=== PATIENT | female | born 1975 ===

== ENCOUNTER 2016-09-20 14:30 | Inpatient (IN) | payer OTHER ==
[~2016-09-20] VITALS: Ht 160 cm; Wt 85.7 kg
[2016-10-24] MEDS ORDERED: HYZAAR 100-12.1 EACH ORAL (11:01)
[2016-10-25] VITALS (12 sets, daily range): BP systolic 110–148; BP diastolic 59–95
[2016-10-25] MEDS ORDERED: IBUPROFEN800 M1 PO (06:04)
--- NOTE | 2016-10-25 07:13 | Pre-Procedure Note/Attestation ---
Pre-Procedure Note/Attestation Complete Prior to Procedure Procedure Narrative: acdf c34, c45, c56 Indications for Procedure Pre-Operative Diagnosis: cervical myeloradiculopathy Attestation I attest that I discussed the nature of the procedure; its benefits; risks and complications; and alternatives (and the risks and benefits of such alternatives ), prior to the procedure, with the patient (or the patient's legal sales representative). I attest that, if there was a reasonable possibility of needing a blood transfusion, the patient (or the patient's legal sales representative) was given the [facility] standardized written summary, pursuant to the Smooth [place] Blood Safety Act ([place] Health and Safety Code # 1645, as amended). I attest that I re-evaluated the patient just prior to the surgery and that there has been no change in the patient's H&P, except as documented below: SHAE DUBOSE October 25, 2016 07:13
[2016-10-25] MEDS ORDERED: Bacitracin 50000 Units Vial ONE (07:15)
[2016-10-25] MEDS ORDERED: Bupivacaine w/Epi 0.5% 30ml Vial INJ ONE (07:15)
[2016-10-25] MEDS ORDERED: Thrombin 5000 units TOPIC ONE (07:15)
[2016-10-25] MEDS ORDERED: Vancomycin 1gm inj IVPB ONE (07:15)
[2016-10-25] MEDS ORDERED: Naloxone 0.4mg/ml Inj IVP PRN (07:15)
[2016-10-25] MEDS ORDERED: HYDROmorphone 1mg/ml Carpuject IVP PRN (07:15)
[2016-10-25] MEDS ORDERED: Norco 5mg/325mg tab ORAL PRN (07:15)
[2016-10-25] MEDS ORDERED: Norco 7.5mg/325mg tab ORAL PRN ×2 (07:15)
[2016-10-25] MEDS ORDERED: Thrombin 5000 units spray kit TOPIC ONE (07:18)
[2016-10-25 07:46] LABS: APPEARANCE,URINE CLEAR; KETONES,URINE NEGATIVE (NEGATIVE); LEUKOCYTE ESTERASE ,URINE NEGATIVE (NEGATIVE); NITRITE,URINE NEGATIVE (NEGATIVE); PH,URINE 6 (4.5-8.0); PROTEIN,URINE NEGATIVE (NEGATIVE); UROBILINOGEN,URINE NORMAL MG/DL (0.0-1.0)
[2016-10-25 08:00] LABS: RBC,URINE 0-2 /HPF (0 - 2); WBC,URINE 0-2 /HPF (0 - 2)
[2016-10-25] MEDS ORDERED: Dexamethasone 4mg/ml vial ONE (08:00)
[2016-10-25] MEDS ORDERED: NS Irrig 1000ml ONE (08:00)
[2016-10-25] MEDS ORDERED: Sterile Water Irrig 1000ml IRRIG ONE (08:00)
[2016-10-25] MEDS ORDERED: Neostigmine 1mg/ml 10ml Inj ONE (08:00)
[2016-10-25] MEDS ORDERED: Zemuron 50mg/5ml Inj IV ONE (08:00)
[2016-10-25] MEDS ORDERED: Propofol 10mg/ml 100ml btl IV ONE (08:00)
[2016-10-25] MEDS ORDERED: Succinylcholine 20mg/ml 10ml vial ONE (08:00)
[2016-10-25] MEDS ORDERED: LR 1000ml ONE (08:00)
[2016-10-25] MEDS ORDERED: Midazolam 2mg/2ml Inj ONE (08:00)
[2016-10-25] MEDS ORDERED: Ketorolac 30mg Inj ONE (08:00)
[2016-10-25] MEDS ORDERED: fentaNYL 250mcg/5ml ONE (08:00)
[2016-10-25] MEDS ORDERED: Glycopyrrolate 0.2mg/ml 1ml Vial ONE (08:00)
[2016-10-25 08:01] LABS: BACTERIA,URINE OCCASIONAL /HPF; SQUAMOUS EPITHELIAL CELL,UR FEW /LPF (NONE/OCC)
[2016-10-25] MEDS ORDERED: Gelfoam Absorbable 1gm powder pkt TOPIC ONE (08:07)
[2016-10-25] MEDS ORDERED: Docusate 100mg tablet ORAL SCH (09:00)
--- NOTE | 2016-10-25 09:27 | Anethesia Preoperative Eval ---
Anesthesia Pre-op PMH/ROS General Date of Evaluation: October 25, 2016 Time of Evaluation: 07:10 Anesthesiologist: Shannon ASA Score: ASA 2 Mallampati Score Class I : Soft palate, uvula, fauces, pillars visible Class II: Soft palate, uvula, fauces visible Class III: Soft palate, base of uvula visible Class IV: Only hard plate visible Mallampati Classification: Class III Surgeon: Sonali Diagnosis: Cervical radiculopathy Surgical Procedure: ACDF C3 to C6 Anesthesia History: PONV Family History: no anesthesia problems Allergies: Coded Allergies: No Known Allergies (Unverified , 10/24/16) Medications: see eMAR Past Medical History Cardiovascular: Reports: HTN, Denies: CAD, [place], arrhythmia, other, valve dz Pulmonary: Denies: COPD, JAYDON, asthma, other Gastrointestinal/Genitourinary: Reports: GERD, Denies: CRI, ESRD, other Neurologic/Psychiatric: Reports: other - chronic pain, Denies: CVA, TIA, dementia, depression/anxiety Endocrine: Denies: DM, hypothyroidism, other, steroids HEENT: Denies: [place] (L), [place] (R), cataract (L), cataract (R), glaucoma, other Hematology/Immune: Denies: DVT, anemia, bleeding disorder, other Musculoskeletal/Integumentary: Denies: DDD, DJD, OA, RA, edema, other Other: obesity PMH Narrative: as above PSxH Narrative: C section Anesthesia Pre-op Phys. Exam Physician Exam Last Vital Signs Date Time Temp Pulse Resp B/P Pulse Ox O2 Delivery O2 Flow Rate FiO2 10/25/16 06:19 98.8 86 18 148/95 97 Room Air Constitutional: NAD Neurologic: CN 2-12 intact Cardiovascular: RRR, no M/R/G Respiratory: CTA Gastrointestinal: other - obesity Airway Exam Mallampati Score: Class III MO: full Neck: short ROM: limited Teeth: intact Dentures: no lower, no upper Anesthesia Pre-op A/P Labs see chart. Urinalysis is missing in preoperative lab work. To rule out possible UTI STAT UA was ordered will not start the case without getting a normal result. Urine Test Test 10/25/16 07:40 Urine HCG, Qualitative Negative Studies Pre-op Studies: EKG - NSR Risk Assessment & Plan Assessment: ASA 2 Plan: GA with ETT PONV prevention Neuromonitoring Status Change Before Surgery: No Pre-Antibiotics Drug: Ancef 2gr. Given Within 1 Hr of Incision: Yes Time Given: 08:38 DARCIE MAGALLANES M.D. October 25, 2016 09:27
[2016-10-25] MEDS ORDERED: LR 1000ml 1,000 ML IVLG SCH (09:41)
[2016-10-25] MEDS ORDERED: Midazolam 2mg/2ml Inj IVP PRN (09:45)
[2016-10-25] MEDS ORDERED: Meperidine 25mg/0.5ml Inj IV PRN (09:45)
[2016-10-25] MEDS ORDERED: Metoclopramide 10mg/2ml Inj IVP PRN (09:45)
[2016-10-25] MEDS ORDERED: DiphenhydrAMINE 50mg/ml Inj IVP PRN (09:45)
[2016-10-25] MEDS ORDERED: Ketorolac 30mg Inj IV PRN (09:45)
[2016-10-25] MEDS ORDERED: Hydromorphone 0.5mg/0.5ml inj IVP PRN (09:45)
--- NOTE | 2016-10-25 11:22 | Brief Operative Note ---
Immediate Post Operative Note Operative Note Pre-op Diagnosis: cervical myeloradiculopathy Procedure: acdf c3-6 Post-op Diagnosis: same as above Post-op Diagnosis: same as pre-op Findings: consistent w/pre-op dx studies Surgeon: emanuel Investment Accounting Clerk: radha Anesthesiologist: jerry Anesthesia: general Specimen: none Complications: none Condition: stable Fluids: 1200cc Estimated Blood Loss: volume - less than 50 cc Drains: none Implant(s) used?: Yes SHAE DUBOSE October 25, 2016 11:22
[2016-10-25] MEDS ORDERED: Bacitracin Oint 15gm Tube TOPIC ONE (11:35)
--- NOTE | 2016-10-25 12:03 | Immediate Post-Op Evaluation ---
Immediate Post-Op Evalulation Immediate Post-Op Evalulation Procedure: ACDF C3-C4-C5-C6 Date of Evaluation: October 25, 2016 Time of Evaluation: 12:01 IV Fluids: 1200 Blood Products: none Estimated Blood Loss: <50 Urinary Output: 150 Blood Pressure Systolic: 123 Blood Pressure Diastolic: 55 Pulse Rate: 93 Respiratory Rate: 22 O2 Sat by Pulse Oximetry: 99 Temperature (Fahrenheit): 98.6 Pain Score (1-10): 2 Nausea: No Vomiting: No Complications none Patient Status: reacts, patent, extubated, none Hydration Status: adequate DARCIE MAGALLANES M.D. October 25, 2016 12:03
[2016-10-25] MEDS: HYDROmorphone 1mg/ml Carpuject SUBQ PRN ×3 (14:23→21:50)
[2016-10-25] MEDS: D5 1/2NS 1,000 ML IV SCH (14:23)
[2016-10-25] MEDS: ceFAZolin sod 1 GM in D5W 55 ML IV SCH (16:11)
[2016-10-25] MEDS: Docusate 100mg cap ORAL SCH (18:00)
--- NOTE | 2016-10-25 20:19 | Operative Note - Dictated ---
DATE OF OPERATION: 10/25/2016 PREOPERATIVE DIAGNOSIS: C3-C4, C4-C5, and C5-C6 disc protrusions with stenosis and right upper extremity myeloradiculopathy with positive upper motor neuron signs. POSTOPERATIVE DIAGNOSIS: C3-C4, C4-C5, and C5-C6 disc protrusions with stenosis and right upper extremity myeloradiculopathy with positive upper motor neuron signs. PROCEDURE PERFORMED: 1. Interbody arthrodesis at C3-C4, C4-C5, and C5-C6. 2. Anterior cervical instrumentation C3 through C6. 3. Anterior cervical diskectomy and decompression of the spinal cord at C3-C4, C4-C5, and C5-C6. 4. Implantation of PEEK interbody device with local autologous bone and [place] allograft at C3-C4, C4-C5, and C5-C6. 5. Intraoperative use of fluoroscopy. 6. Intraoperative use of microscope. 7. SSEP/EMG/MEP monitoring. SURGEON: Luis Lyon M.D. SPECIAL EDUCATION PROFESSIONAL: Rubén Ortiz M.D. ANESTHESIOLOGIST: Mayur Ortega M.D. SPECIAL EDUCATION PROFESSIONAL: General endotracheal anesthesia. EBL: Less than 50 mL. IV ANTIBIOTICS: 2 g of Ancef. COMPLICATIONS: None. BACKGROUND: She is a pleasant female, who failed nonoperative treatments and options for above treatment was given. Risks, alternatives, and benefits were discussed with the patient at length. The patient wished to proceed. Risks include, but are not limited to, anesthesia complications including , medical complications including liver, kidney, and cardiopulmonary deficits, bleeding, infection, dysphonia, dysphagia, hematoma of the neck, nerve root injury, paralysis, spinal cord injury, CSF leak, dural tear, fracture of the hardware, loosening of the hardware, need for revision, decompression, and fusion, swallowing difficulties, esophageal injury, tracheal injury, recurrent laryngeal nerve injury as well as other complications including compartment syndrome. The patient understood and wished to proceed. All the patient's questions were answered. Written and verbal consent was given. No guarantees were given. OPERATIVE FINDINGS: Herniated nucleus pulposus at C3-C4, C4-C5, and C5-C6 with spinal stenosis and effacement of the CSF space with moderate to severe stenosis at C5-C6 and moderate stenosis at C4-C5 and moderate stenosis at C3-C4 with spinal cord compression. OPERATION: The patient was brought into the operating room supine on a stretcher. Appropriate IV lines were placed by the anesthesiologist. 2 g of Ancef was administered. The patient was induced and intubated without complication. The patient was positioned on the operating room table. The neck was placed in neutral alignment. The arms were tucked by the side. All bony prominences were well padded as well as four extremities. SSEP/EMG/MEP monitoring leads were placed and baseline recordings were done by the Neurophysiology loss control technician. Preoperative fluoroscopy revealed the planned incision to be overlying C3-C4, C4-C5, and C5-C6. Fluoroscopy showed the neck to be in adequate alignment. The neck was prepped and draped in the usual sterile fashion with alcohol, chlorhexidine scrub, and ChloraPrep. A vertical incision was placed over the anterior right side of the neck over the medial border of the sternocleidomastoid muscle. The hemostasis was achieved with bipolar cautery. The platysma was incised inline with the skin incision. Blunt dissection was carried out in the interval between the strap muscles and the sternocleidomastoid. Superficial cervical fascia was dissected caudally as well as cephalad. Carotid pulse was palpated and found to be well lateral to the field of dissection. Deep cervical fascia was encountered. Once the deep cervical fascia was found, blunt dissection was carried out with Kittner and finger dissection to the prevertebral space. The longus coli was found on both sides of the spine. The longus coli was carefully subperiosteally dissected off of the spine. At this point, retractors were set in place. Spinal needle was placed at the C5-C6 and C4-C5 levels and the C5-C6, C4-C5, and C3-C4 levels were positively identified with lateral fluoroscopy. Retractors were set into place. The intraoperatively sterilely draped microscope was used throughout the case from the beginning of the incision to the end. Attention first was diverted to the C5-C6 disk space. With a number 15 scalpel, incision was made over the anterior annulus and with pituitary rongeurs, straight and curved curette, #2 and #3 Kerrison punches as well as a high speed drill, a radical diskectomy was done. Endplate cartilage was removed. Endplate bone was preserved. The dissection was carried out at the posterior longitudinal ligament with a high-speed drill and with micro set #1 and #2 curettes and Kerrison #1 and #2 punches, the PLL was removed. All disc herniation was removed. An anterior foraminotomy for the exiting C6 nerve roots was done bilaterally and complete decompression of the central canal, the lateral recess, and the foramina entailed including the exiting nerve roots and the spinal cord at C5-C6. The wound was copiously irrigated with triple antibiotic solution and Valsalva was done and there was no CSF leak. Now, the retractors were moved to the C4-C5 level and with same instruments including a scalpel, pituitary rongeurs, #1, #2, and #3 Kerrison punches, high-speed drill, micro set curettes, a radical diskectomy was done. Endplate cartilage was removed. Endplate bone was well preserved. The dissection was carried out to the posterior aspect of the vertebral bodies and the posterior longitudinal ligament. With micro set curettes, the posterior longitudinal ligament was removed and all disc herniation was removed and a complete decompression of the spinal cord, spinal canal, lateral recess, central canal, and foraminotomy entailed including the exiting C5 nerve roots. Valsalva was done. There is no CSF leak. At this point, a complete decompression entailed and the wound was copiously irrigated with triple antibiotic solution. The Surgicel and thrombin was used to achieve hemostasis. There was minimal to no bleeding throughout the case and the final EBL was less than 50 mL. The wound was copiously irrigated at the C4-C5 level and now the retractors were removed to the C3-C4 level and attention was diverted to doing the diskectomy there. The same instruments were used including a #15 scalpel, straight and curved curettes, #2, #3, #1 Kerrison punches, and high-speed drill. Endplate cartilage was removed. Endplate bone was well preserved and the dissection was carried out to the posterior longitudinal ligament. The posterior longitudinal ligament was removed and #1 and #2 Kerrison punches were used to achieve a full decompression at the central canal, the spinal cord, the lateral recess, and foramina as well as the exiting nerve roots. There is compression on the spinal cord at C3-C4 and also at C4-C5 and C5-C6. Once complete decompression was done, Valsalva 40 mmHg was done. There was no CSF leak. Attention now was diverted to placement of interbody devices. From the spinal element system, the trials were used and #6 height spinal elements PEEK cages were chosen for each level including C5-C6, C4-C5, and C3-C4. The PEEK interbody device was packed with [place] as well as local autografts harvested from the vertebral bodies and the PEEK interbody devices were carefully tamped into place at C5-C6, C4-C5, and C3-C4. Once this was accomplished, attention was diverted towards AP and lateral fluoroscopy. The PEEK interbody devices were found to be in excellent position. An appropriately sized [place]ton plate was chosen and placed on the anterior surface of the vertebral bodies. AP and lateral fluoroscopy was done to pick the perfect size of plate and the plate was fixed to the anterior surface of C3, C4, C5, C6 vertebral bodies with 14 mm screws. Each screw had excellent purchase and sat below the locking mechanism of the Colton plate appropriately. Final AP and lateral fluoroscopy revealed all instrumentation to be in excellent position. Alignment of the spine was in acceptable position and now attention was diverted to closure. The wound was copiously irrigated with triple antibiotic solution. Hemostasis was achieved. There was no bleeding and therefore, a drain was chosen not to be used. The AP and lateral fluoroscopy revealed all instrumentation to be in good position. Platysma was closed with 2-0 Vicryl suture. The subdermal subcuticular layers were closed with 3-0 Vicryl sutures. The skin was closed with Dermabond. Sterile dressing tape was placed. Cervical collar was placed. The patient was extubated, taken to recovery room in stable condition, and found to be neurovascularly intact. Luis Lyon M.D. DR: LATANYA JOB#: [id number] CC:
[2016-10-26] VITALS: BP 114/76
[2016-10-26] MEDS: ceFAZolin sod 1 GM in D5W 55 ML IV SCH ×2 (00:15→07:48)
[2016-10-26] MEDS: D5 1/2NS 1,000 ML IV SCH (00:15)
[2016-10-26] MEDS: HYDROmorphone 1mg/ml Carpuject SUBQ PRN (06:03)
--- NOTE | 2016-10-26 07:11 | General Progress Note ---
Progress Note Progress Note doing well. right trap sore. some discomfort with swallowing. tolerating liquids and a soft diet. O: dressing clean, dry and intact motor ue 5/5 lt intact in both extremities. no swelling over the anterior neck calves soft and nt le 5/5 AP: doing well after acdf c3-6 lozenges scd's oob with c collar pain management october d/c today if ambulating and tolerating diet rx in the chart SHAE DUBOSE October 26, 2016 07:11
[2016-10-26 08:00] VITALS: BP 138/88
[2016-10-26] MEDS: Docusate 100mg cap ORAL SCH (08:28)
[2016-10-26 09:55] VITALS: BP 128/65
--- NOTE | 2016-10-26 09:55 | 48 Hour Post Anesthesia Eval ---
Post Anesthesia Evaluation Procedure: ACDF C3-C4-C5-C6 Date of Evaluation: October 26, 2016 Time of Evaluation: 09:53 Blood Pressure Systolic: 128 0: 65 Pulse Rate: 68 Respiratory Rate: 22 Temperature (Fahrenheit): 97.6 O2 Sat by Pulse Oximetry: 98 Airway: patent Nausea: No Vomiting: No Pain Intensity: 3 Hydration Status: adequate Cardiopulmonary Status: stable Mental Status/LOC: patient returned to baseline Follow-up Care/Observations: n/a Post-Anesthesia Complications: none Follow-up care needed: N/A DARCIE MAGALLANES M.D. October 26, 2016 09:55
[2016-10-26] MEDS ORDERED: NORCO 5-325 TA1 EAC1 ORAL (10:22)
[2016-10-26] MEDS ORDERED: D5 1/2NS 1000ml IV ONE (11:59)
[2016-10-26] MEDS ORDERED: Tubing IV Secondary IV ONE (11:59)
--- NOTE | 2016-10-27 10:53 | Diagnostic Imaging Report ---
Indication: Neck Pain Findings: Fluoroscopic views of the cervical spine were obtained. Localization image followed by a 4 level anterior fusion with a compression plate and screws demonstrated C4-C6. Discectomy/corpectomy/disc replacement noted at the 3 intervening levels. Hardware alignment and position appear satisfactory on the postoperative images. Endotracheal tube noted. Impression: Intraoperative imaging
--- NOTE | 2016-10-28 12:09 | Discharge Summary ---
Discharge Summary Hospital Course Date of Admission October 25, 2016 at 05:33 Date of Discharge October 26, 2016 at 12:00 Admitting Diagnosis cervical radiculopathy Reason for Hospitalization: elective surgery HPI Prabha Gomez is a 41 year old female who was admitted on October 25, 2016 at 05:33 for Cervical Radiculopathy imaging as outpatient revealed C3-C4, C4-C5, and C5-C6 disc protrusions with stenosis and right upper extremity myeloradiculopathy with positive upper motor neuron signs. patient admitted or elective surgery Procedures s/p 10/[address] Lyon ( ACDF C3-C4-C5-C6) 1. Interbody arthrodesis at C3-C4, C4-C5, and C5-C6. 2. Anterior cervical instrumentation C3 through C6. 3. Anterior cervical diskectomy and decompression of the spinal cord at C3-C4, C4-C5, and C5-C6. 4. Implantation of PEEK interbody device with local autologous bone and [place] allograft at C3-C4, C4-C5, and C5-C6. 5. Intraoperative use of fluoroscopy. 6. Intraoperative use of microscope. 7. SSEP/EMG/MEP monitoring. Hospital Course s/p surgery 10/25 course of recovery uneventful surgeon closely followed neurologically intact motor strength 10/25 BLE and BUE dressing C/D/I no swelling in anterior neck cervical collar on pain management Lozenges prn advance diet as tolerated, able to tolerate SCD OOB with cervical collar cleared for dc fup with surgeon as outpatient DISCHARGE DIAGNOSIS: C3-C4, C4-C5, and C5-C6 disc protrusions cervical stenosis right upper extremity myeloradiculopathy with positive upper motor neuron signs. s/p ACDF C3-C4-C5-C6 Discharge Medications Continued Medications: Hydrocodone Bit/Acetaminophen 5-325* ([place] 5-325 Tablet*) 1 Each Tablet 1 TAB ORAL Q4H PRN for For Pain, #40 TAB Losartan/Hydrochlorothiazide 100-12.5 Tablet (Hyzaar 100-12.5 Tablet) 1 Each Tablet 1 TAB ORAL DAILY, TAB Discontinued Medications: Ibuprofen (Ibuprofen) 800 Mg Tablet 800 MG PO PRN, TAB Discharge Condition Upon Discharge: stable Discharge Disposition Patient was discharged to Home (01) Discharge Diagnoses: Discharge Instructions Discharge Instructions Special Instructions I have been assigned to complete a D/C Summary on this account. I was not involved in the patient management Nir Ward),Ilda VALADEZ October 28, 2016 12:09
== END 2016-10-26 12:00 | disposition home or self-care (01) | DRG 472 ==
LOC: SDSOVERFLO 10-25 05:33 → 3E 10-25 13:14
PROC: 00NW0ZZ Release Cervical Spinal Cord, Open Approach (ICD-10-PCS; principal; 2016-10-25 07:30)
PROC: 01N10ZZ Release Cervical Nerve, Open Approach (ICD-10-PCS; principal; 2016-10-25 07:30)
PROC: 0RG20A0 Fusion of 2 or more Cervical Vertebral Joints with Interbody Fusion Device, Anterior Approach, Anterior Column, Open Approach (ICD-10-PCS; principal; 2016-10-25 07:30)
PROC: 0RT30ZZ Resection of Cervical Vertebral Disc, Open Approach (ICD-10-PCS; principal; 2016-10-25 07:30)
DX: M50.11 Cervical disc disorder with radiculopathy, high cervical region (principal); M50.01 Cervical disc disorder with myelopathy, high cervical region; I10 Essential (primary) hypertension; M48.02 Spinal stenosis, cervical region
CPT/HCPCS: 36415; 72040; 76001; 81001; 81025; 86850; 86900; 86901; 87081; 94003; 94150; J2250; J2405; J2710